=== PATIENT | female | born 1965 | race Caucasian/White ===

== ENCOUNTER 2017-11-11 16:51 | Emergency (ER) | payer OTHER ==
[~2017-11-11] VITALS: Ht 172.7 cm; Wt 88.5 kg
[~2017-11-11 16:51] MED LIST: ALBU90OI INH; BENZ100A PO; CYCL10 PO; IBUP600 PO; Norco 5-325 Ta1 EACH PO; Omeprazole20 M1 PO; Percocet 5-3251 EACH PO; SPACE CHAMBER1 EACH MC; TRAZ50 PO; Zithromax250 MG PO
[2017-11-11] MEDS ORDERED: Tobrex5 ML LEFTEYE (19:27)
== END 2017-11-11 20:34 | disposition home or self-care (01) ==
LOC: ER 16:51
DX: H10.9 Unspecified conjunctivitis (principal); F17.200 Nicotine dependence, unspecified, uncomplicated; Z88.1 Allergy status to other antibiotic agents; Z88.8 Allergy status to other drugs, medicaments and biological substances; Z90.710 Acquired absence of both cervix and uterus
CPT/HCPCS: 99283

== ENCOUNTER 2018-01-17 03:49 | Emergency (ER) | payer OTHER ==
[~2018-01-17] VITALS: Ht 172.7 cm; Wt 86.2 kg
[~2018-01-17 03:49] MED LIST changes: +Tobrex5 ML LEFTEYE
[2018-01-17] MEDS ORDERED: Percocet 5-3251 EACH PO (04:58)
== END 2018-01-17 05:16 | disposition home or self-care (01) ==
LOC: ER 03:49
DX: S40.011A Contusion of right shoulder, initial encounter (principal); S60.211A Contusion of right wrist, initial encounter; F17.210 Nicotine dependence, cigarettes, uncomplicated; Y04.8XXA Assault by other bodily force, initial encounter
CPT/HCPCS: 73030; 73110; 73130; 99283